=== PATIENT | female | born 1955 | race Caucasian/White ===

== ENCOUNTER 2018-04-14 12:22 | Observation (INO) ==
[2018-04-14] MEDS ORDERED: Adenosine Inj 6 MG/2 ML Syringe IV.PUSH ONE (12:30)
[2018-04-14] MEDS: Metoprolol Inj 5 MG/5 ML Vial IV.PUSH PRN ×2 (12:44→12:54)
[2018-04-14] MEDS ORDERED: dilTIAZem 60 MG Tablet PO ONE (13:02)
[2018-04-14 13:03] LABS: Baso # (Auto) 0.1 th/mm3 (0.0-0.2); Baso % (Auto) 1.6 % (0.0-2.0); Eos % (Auto) 0.6 % (0.0-4.0); Hematocrit 46.9 % (35.0-46.0); Hemoglobin 15.6 gm/dL (11.6-15.3); Lymph # (Auto) 1.2 th/mm3 (1.0-4.8); Lymph % (Auto) 16.8 % (9.0-44.0); Mean Corpuscular HGB Conc 33.3 % (32.0-36.0); Mean Corpuscular Hemoglobin 31.1 pg (27.0-34.0); Mean Corpuscular Volume 93.2 fL (80.0-100.0); Mean Platelet Volume 8.1 fL (7.0-11.0); Mono # (Auto) 0.4 th/mm3 (0.0-0.9); Mono % (Auto) 4.8 % (0.0-8.0); Neut # (Auto) 5.7 th/mm3 (1.8-7.7); Neut % (Auto) 76.2 % (16.0-70.0); Platelet Count 199 th/mm3 (150-450); Red Blood Count 5.03 mil/mm3 (4.00-5.30); Red Cell Distribution Width 11.8 % (11.6-17.2); White Blood Count 7.4 th/mm3 (4.0-11.0)
[2018-04-14 13:09] LABS: Chloride 105 meq/L (98-107); Potassium 3.6 meq/L (3.5-5.1); Sodium 139 meq/L (136-145)
[2018-04-14 13:14] LABS: Anion Gap 12 meq/L (5-15); Calcium 9.4 mg/dL (8.5-10.1); Carbon Dioxide 21.7 meq/L (21.0-32.0); Glucose,Random 137 mg/dL (74-106); Lipase 76 U/L (73-393)
[2018-04-14 13:15] LABS: Blood Urea Nitrogen 16 mg/dL (7-18)
[2018-04-14 13:17] LABS: Alanine Aminotransferase 29 U/L (10-53); Aspartate Aminotransferase 23 U/L (15-37); Glomerular Filtration Rate 35 mL/min (>89)
[2018-04-14 13:19] LABS: Total Protein 7.4 g/dL (6.4-8.2)
[2018-04-14 13:20] LABS: Alkaline Phosphatase 41 U/L (45-117)
[2018-04-14 13:22] LABS: Troponin I 0.03 ng/mL (0.02-0.05)
--- NOTE | 2018-04-14 13:35 | ED ---
HPI General Chief Complaint: Abdominal Pain Stated Complaint: Abnormal Obstruction x1week Time Seen by Provider: 04/14/18 12:37 Source: patient Mode of arrival: ambulatory Limitations: no limitations History of Present Illness HPI narrative: This patient was sent to us by Dr. Coronado for tachycardia. The patient presented to his office this morning for the evaluation of abdominal bloating and constipation. She reports that she started using an herbal supplement called FORSKAHLIN a few weeks ago. She states that it was working so well that she upped her dose. She states that she "took a handful" 1 week ago and that her symptoms of intermittent tachycardia as well as subjective constipation started at that time. She states that she has not taken anymore since then. So, her last dose was 1 week ago. She reports intermittent tachycardia for the last week but states that her heart rate would always slow down with rest until this morning. When she saw Dr. Coronado this morning, she was found to have a rapid heart rate which did not spontaneously resolve. She was subsequently sent to us for further management. MD complaint: rapid heart beat Onset (ago): hour(s) (1) Duration: constant Context: other (She feels that it is related to constipation) Arrhythmia history: atrial fibrillation Associated symptoms: nausea and other (Lightheadedness) Related Data Home Medications Medication Instructions Recorded Confirmed No Known Home Medications 04/14/18 04/14/18 Allergies Allergy/AdvReac Type Severity Reaction Status Date / Time iodine Allergy Intermediate unknown Verified 04/14/18 12:38 Sulfa (Sulfonamide Allergy Intermediate unknown Verified 04/14/18 12:38 Antibiotics) Review of Systems Except as stated in HPI: all other systems reviewed are negative Constitutional Reports poor appetite Cardiovascular Denies chest pain, Denies diaphoresis, Denies syncope and Reports rapid heart rate Gastrointestinal Reports constipation [facility] Medical History Medical History Atrial fibrillation with RVR (Acute) Surgical History Surgical History S/P ablation of atrial fibrillation (Acute) Social History Social History Substance History: No History of Abuse Second Hand Smoke Exposure: No Smoking Status: Former smoker How Often Do You Have a Drink Containing Alcohol: Never Recent Travel in [facility] within the Last 8 Weeks: No Recent Out of Country Travel within the Last 8 Weeks: No Immunization History Tetanus Immunization: <5 Years Tetanus Immunization Year if Known: 2016 Hx Influenza Vaccine This Season: Yes Exam Const General: cooperative, healthy appearing, comfortable, no acute distress and well developed HENMT Head: normal to inspection, normocephalic and atraumatic Eyes General: appearance normal, both eyes and all related structures Conjunctivae: conjunctivae normal Sclera: sclerae normal Pupils: PERRL EOM: EOM intact bilaterally Neck Neck: normal visual inspection and full ROM Chest Chest: normal inspection of the chest Resp Effort & Inspection: normal respiratory effort and able to speak in complete sentences Auscultation: clear to auscultation bilaterally Cardio Rate: tachycardic Rhythm: regular rhythm GI Inspection: normal to inspection Palpation: soft Auscultation: normal bowel sounds Back/Spine/Pelvis Cervical Spine: cervical ROM normal Thoracic/Lumbar Spine: thoraco-lumbar ROM normal Skin General: no rashes or lesions noted and turgor normal Neuro General: alert, awake, oriented x3, moves all extremities and CN's II-XI intact bilaterally Extrem General: normal to inspection and full ROM Psych Appearance: grossly normal Mental Status: mental status grossly normal Speech and Movement: speech and movement normal Mood: congruent mood Affect: normal affect Attitude: cooperative Thought Process: normal Thought Content: normal Judgment: judgment good Course Reevaluation(s) Reevaluation #1: The patient has actually been reassessed several times. Her rate initially slowed with Adenocard to where we could see that she was in atrial fibrillation. She was then treated with metoprolol IV 3. She was also given Cardizem 60 mg p.o. Her rate has been controlled with this treatment. She has remained in atrial fibrillation. Initial Documented Vital Signs Temperature 98.2 F 04/14/18 12:30 Pulse Rate 248 H 04/14/18 12:30 Respiratory Rate 22 04/14/18 12:30 Blood Pressure 142/86 H 04/14/18 12:30 Pulse Oximetry 99 04/14/18 12:30 Last Documented Vital Signs Temperature 98.2 F 04/14/18 12:30 Pulse Rate 125 H 04/14/18 14:35 Respiratory Rate 16 04/14/18 12:52 Blood Pressure 109/79 04/14/18 14:35 Pulse Oximetry 98 04/14/18 14:35 Critical Care Time Critical Care Time: Yes Total Critical Care Time: 45 Attestation: Time to perform other separately billable procedures was not included in the critical care time. My time did not include minutes spent treating any other patients simultaneously or on activities that did not directly contribute to the patient's treatment. The services I provided to this patient were to treat and/or prevent clinically significant deterioration due to AF with RVR I provided critical care services requiring my management, as noted below: Chart data review, documentation time, medication orders and management, vital sign assessments/reviewing monitor data, ordering and reviewing lab tests, ordering and interpreting/reviewing x-rays and diagnostic studies, care of the patient and discussion of the patient with the admitting physicians Medical Decision Making MDM Narrative Medical decision making narrative: This patient presents with the main problem of tachycardia but with the chief complaint of constipation and abdominal bloating. She was being evaluated by Dr. Coronado this morning for the constipation and was found to be tachycardic. She was sent to us for further evaluation and treatment. She has recently started taking an herbal supplement. She developed intermittent episodes of tachycardia after starting the herbal supplement. She states that today is the first day that the tachycardia did not spontaneously resolve after a few minutes. She further reports that she developed the constipation and abdominal bloating after starting the herbal supplement. The patient is agreeable to admission for further evaluation and treatment of her new onset atrial fibrillation/flutter. Differential Diagnosis Differential Diagnosis: Differential diagnosis of tachycardia includes but is not limited to PSVT, atrial fibrillation with a rapid ventricular response, sinus tachycardia (due to hypovolemia, anemia, thyrotoxicosis, PE) Differential diagnosis of abdominal pain includes but is not limited to gastritis, pancreatitis, hepatitis, gastroenteritis, constipation, urinary retention, peptic ulcer disease, diverticulitis or appendicitis Lab Data Lab results reviewed: Yes I reviewed the patient's lab results. Result diagrams: 04/14/18 12:50 04/14/18 12:50 Lab Results 04/14/18 04/14/18 Range/Units 12:50 12:50 CBC w Diff Auto diff final WBC 7.4 (4.0-11.0) th/mm3 RBC 5.03 (4.00-5.30) mil/mm3 Hgb 15.6 H (11.6-15.3) gm/dL Hct 46.9 H (35.0-46.0) % MCV 93.2 (80.0-100.0) fL MCH 31.1 (27.0-34.0) pg MCHC 33.3 (32.0-36.0) % RDW 11.8 (11.6-17.2) % Plt Count 199 (150-450) th/mm3 MPV 8.1 (7.0-11.0) fL Neut % (Auto) 76.2 H (16.0-70.0) % Lymph % (Auto) 16.8 (9.0-44.0) % [place] % (Auto) 4.8 (0.0-8.0) % Eos % (Auto) 0.6 (0.0-4.0) % Baso % (Auto) 1.6 (0.0-2.0) % Neut # (Auto) 5.7 (1.8-7.7) th/mm3 Lymph # (Auto) 1.2 (1.0-4.8) th/mm3 [place] # (Auto) 0.4 (0.0-0.9) th/mm3 Eos # (Auto) 0.0 (0.0-0.4) th/mm3 Baso # (Auto) 0.1 (0.0-0.2) th/mm3 WBC Differential . Differential Comment . Sodium 139 (136-145) meq/L Potassium 3.6 (3.5-5.1) meq/L Chloride 105 (98-107) meq/L Carbon Dioxide 21.7 (21.0-32.0) meq/L Anion Gap 12 (5-15) meq/L BUN 16 (7-18) mg/dL Creatinine 1.50 H (0.50-1.00) mg/dL Estimated GFR 35 L (>89) mL/min Random Glucose 137 H (74-106) mg/dL Calcium 9.4 (8.5-10.1) mg/dL Total Bilirubin 0.7 (0.2-1.0) mg/dL AST 23 (15-37) U/L ALT 29 (10-53) U/L Alkaline Phosphatase 41 L (45-117) U/L Troponin I 0.03 (0.02-0.05) ng/mL Total Protein 7.4 (6.4-8.2) g/dL Albumin 4.0 (3.4-5.0) g/dL Lipase 76 (73-393) U/L Imaging Data Radiologist's impression: Abdomen/Pelvis CT 04/14/18 12:41 CONCLUSION: 1. Unremarkable bowel gas pattern on this noncontrast examination performed without oral contrast. 2. The gallbladder appears unremarkable. ECG Data EKG Prior to Arrival: No Attestation: I personally reviewed and interpreted this ECG as follows: ( Initial EKG shows a regular tachycardia to 50. She has some rate related ST segment depression inferiorly and laterally. Repeat EKG following medication shows atrial flutter with a rate of 127. The ST depression has improved.) Discharge Plan Discharge Disposition Patient Disposition: 30 Still Patient Discharge Details Diagnosis: Atrial fibrillation with rapid ventricular response, Constipation Physicians Team ED Provider: Vera Chapa Primary Care Provider: UNKNOWN, Rxs /Orders / Referrals /Forms Prescriptions: No Action No Known Home Medications RF: 0 Status ED Status: Pending Admission
--- NOTE | 2018-04-14 14:30 | CT ---
EXAM DATE: 04/14/2018 1:57 PM EDT AGE/SEX: 62 years / Female INDICATIONS: Lower abdominal pain. CLINICAL DATA: This is the patient's initial encounter. Patient reports that signs and symptoms have been present for 1 week and indicates a pain score of 4/10. MEDICAL/SURGICAL HISTORY: . Atrial fibrillation. . Cardiac ablation. RADIATION DOSE: 17.09 CTDI (mGy) COMPARISON: No prior exams available for comparison. TECHNIQUE: Multiple contiguous axial images were obtained through the abdomen. Images were obtained using multiple row detector helical technique. Using automated exposure control and adjustment of the mA and/or kV according to patient size, radiation dose was kept as low as reasonably achievable to o btain optimal diagnostic quality images. DICOM format image data is available electronically for rev iew and comparison. FINDINGS: Lower Lungs: The visualized lower lungs are clear. Liver: The liver has a homogeneous density without space-occupying lesion. There is no dilation of th e biliary tree. The gallbladder is unremarkable in appearance. Spleen: Homogeneous density without enlargement. Pancreas: Unremarkable without mass or calcification. Kidneys: Normal in size and shape. No evidence of mass or hydronephrosis. Adrenal Glands: Unremarkable. Aorta: The aorta and proximal iliac vessels are grossly unremarkable without aneurysmal dilation. T he appendix is not well visualized. Bowel/Mesentery: No oral contrast was given limiting the sensitivity of the exam. The bowel loops are grossly unremarkable. The cecum and sigmoid colon have a normal configuration. Abdominal Wall: Intact. Retroperitoneum: No evidence of adenopathy in the retrocrural, para-aortic, or deep pelvic regions. Bladder: Contours are smooth. Reproductive Organs: No abnormal masses or calcifications seen. Inguinal: The inguinal region is unremarkable without evidence of adenopathy. Bony Structures: Unremarkable. CONCLUSION: 1. Unremarkable bowel gas pattern on this noncontrast examination performed without oral contrast. 2. The gallbladder appears unremarkable. Electronically signed by: Rinku Pedersen MD 04/14/2018 2:28 PM EDT
[2018-04-14] MEDS ORDERED: Acetaminophen 325 MG Tablet PO PRN (16:09)
[2018-04-14] MEDS ORDERED: Sod Chloride 0.9% Inj 1,000 ML IV.CONT SCH (16:15)
--- NOTE | 2018-04-14 17:26 | P.HP ---
History of Present Illness Service: medicine Primary Care Physician: UNKNOWN History of Present Illness: Patient sent to the ER from her gastroenterologists office after being found to be extremely tachycardic. According to patient has had a hx of atrial fibrillation requiring ablation x4 , the last one was [address] Reed. She has done well since and has been trying to loose weight in order to improve her cholesterol. Last week she was taking a herbal weight loss pill (Forskohlii ) she states she was having stomach issues with bloating and constipation as well. She took extra doses of the supplement hoping to help her GI problems. She states she noted she started getting palppitations at this time.Apparently she stopped taking the pills last week. The palpitations recurred but would resolve spontaneously. She denies cp or sob , she does state she would get light headed. Apparently in the past before her ablations she would pass out so she did not think much regarding the lightheadedness. Meanwhile because of her constipation and discomfort she made an appt with GI to be seen today. Thinking they may do a procedure on her she did not eat since Friday. She drinks water and denies the use of caffeinated beverages or alcohol. When she was sent to the ER her heart rate was in the 250's and she required adenocard, lopressor and oral cardizem to slow her down. She states in the past she had the ablations as she was refractory to the medications. She has been in good health until now and her main concern in the ED is her bowels. - Diagnosis (1) Atrial fibrillation with rapid ventricular response (2) Constipation Review of Systems All other systems reviewed negative except as stated in HPI [facility] - History History Provided By: Patient - Medical History Medical History: Medical History (Last Updated 04/14/18 @ 16:58 by Kiara Albrecht MD) Atrial fibrillation with RVR Hyperlipidemia - Surgical History Surgical History: Surgical History (Last Updated 04/14/18 @ 16:58 by Kiara Albrecht MD) S/P ablation of atrial fibrillation - Family History Family History: Family History (Last Updated 04/14/18 @ 16:58 by Kiara Albrecht MD) Mother Family history of colon cancer Sister Atrial fibrillation Father Atrial fibrillation - Tobacco History Second Hand Smoke Exposure: No Tobacco Use In Past 30 Days: No Smoking Status: Former smoker - Alcohol History How Often Do You Have a Drink Containing Alcohol: Never - Substance Use History Substance History: No History of Abuse - Travel History Recent Travel in the [place] Within the Last 8 Weeks: No Recent Travel Out of the Country Within the Last 8 Weeks: No - Immunization History Tetanus Immunization: <5 Years Tetanus Immunization Year if Known: 2016 Hx Influenza Vaccine This Season: Yes Medications and Allergies Active Medications: Active Medications Acetaminophen (Tylenol) 650 mg PO Q4H PRN PRN Reason: Temp > 100.4 Sodium Chloride (Ns Inj) 1,000 mls @ 60 mls/hr IV.CONT .[id number] TASHI Metoprolol Tartrate (Lopressor Inj) 5 mg IV.PUSH Q5M PRN PRN Reason: RAPID HEART RATE Last Admin: 04/14/18 12:54 Dose: 5 mg Senna/Docusate Sodium (Carolee-Colace) 1 tab PO BID PRN PRN Reason: CONSTIPATION Sodium Chloride (Ns Flush) 2 ml IV.FLUSH PRN PRN PRN Reason: FLUSH AFTER USING IV ACCESS Temazepam (Restoril) 15 mg PO HS PRN PRN Reason: INSOMNIA Allergies Allergy/AdvReac Type Severity Reaction Status Date / Time iodine Allergy Intermediate unknown Verified 04/14/18 12:38 Sulfa (Sulfonamide Allergy Intermediate unknown Verified 04/14/18 12:38 Antibiotics) Exam Vital signs: Vital Signs 04/14/18 12:30 04/14/18 12:41 04/14/18 12:52 Temperature 98.2 F Pulse Rate 248 H 248 H 124 H Respiratory Rate 22 18 16 Blood Pressure 142/86 H 119/84 Pulse Oximetry 99 100 99 04/14/18 13:21 04/14/18 14:35 04/14/18 15:09 Temperature Pulse Rate 98 H 125 H 80 Respiratory Rate Blood Pressure 113/77 109/79 108/77 Pulse Oximetry 97 98 98 Intake & Output 04/13/18 04/14/18 04/14/18 18:59 06:59 18:59 Weight 179 kg - Constitutional no acute distress - Routine HEENT Exam Head: Present: normocephalic Eye: Present: EOMI ENT: Present: mucous membranes moist - Routine Neck Exam Present: supple - Routine Respiratory Exam Present: CTA bilaterally - Routine Cardiovascular Exam Present: tachycardia - Routine Abdominal Exam Present: soft, normoactive bowel sounds - Routine Extremities Exam Present: full ROM - Routine Skin Exam Present: intact - Routine Neurological Exam Present: alert, oriented X3 Results - Labs CBC & Chem 7: 04/14/18 12:50 04/15/18 05:10 Labs: Laboratory Results - last 24 hr 04/14/18 04/14/18 12:50 12:50 CBC w Diff Auto diff final WBC 7.4 RBC 5.03 Hgb 15.6 H Hct 46.9 H MCV 93.2 MCH 31.1 MCHC 33.3 RDW 11.8 Plt Count 199 MPV 8.1 Neut % (Auto) 76.2 H Lymph % (Auto) 16.8 [place] % (Auto) 4.8 Eos % (Auto) 0.6 Baso % (Auto) 1.6 Neut # (Auto) 5.7 Lymph # (Auto) 1.2 [place] # (Auto) 0.4 Eos # (Auto) 0.0 Baso # (Auto) 0.1 WBC Differential . Differential Comment . Sodium 139 Potassium 3.6 Chloride 105 Carbon Dioxide 21.7 Anion Gap 12 BUN 16 Creatinine 1.50 H Estimated GFR 35 L Random Glucose 137 H Calcium 9.4 Total Bilirubin 0.7 AST 23 ALT 29 Alkaline Phosphatase 41 L Troponin I 0.03 Total Protein 7.4 Albumin 4.0 Lipase 76 - Imaging Impressions Abdomen/Pelvis CT 04/14/18 12:41 CONCLUSION: 1. Unremarkable bowel gas pattern on this noncontrast examination performed without oral contrast. 2. The gallbladder appears unremarkable. Caprini VTE Risk Assessment Caprini VTE Risk Assessment: Moderate/High Risk (score >= 2) Caprini Risk Assessment Model: Point Value = 1 Point Value = 2 Point Value = 3 Point Value = 5 Age 41-60 Minor surgery BMI > 25 kg/m2 Swollen legs Varicose veins or History of unexplained or recurrent spontaneous Oral contraceptives or hormone replacement Sepsis (< 1 month) Serious lung disease, including pneumonia (< 1 month) Abnormal pulmonary function Acute myocardial infarction Congestive heart failure (< 1 month) History of inflammatory bowel disease Medical patient at bed rest Age 61-74 Arthroscopic surgery Major open surgery (> 45 min) Laparoscopic surgery (> 45 min) Malignancy Confined to bed (> 72 hours) Immobilizing plaster cast Central venous access Age >= 75 History of VTE Family history of VTE Factor V Leiden Prothrombin [id number] Lupus anticoagulant Anticardiolipin antibodies Elevated serum homocysteine Heparin-induced thrombocytopenia Other congenital or acquired thrombophilia Stroke (< 1 month) Elective arthroplasty Hip, pelvis, or leg fracture Acute spinal cord injury (< 1 month) Prophylaxis Regimen: Total Risk Factor Score Risk Level Prophylaxis Regimen 0-1 Low Early ambulation 2 Moderate Order ONE of the following: *Sequential Compression Device (SCD) *Heparin 5000 units SQ BID 3-4 Higher Order ONE of the following medications: *Heparin 5000 units SQ TID *Enoxaparin/Lovenox 40 mg SQ daily (WT < 150 kg, CrCl > 30 mL/min) *Enoxaparin/Lovenox 30 mg SQ daily (WT < 150 kg, CrCl > 10-29 mL/min) *Enoxaparin/Lovenox 30 mg SQ BID (WT < 150 kg, CrCl > 30 mL/min) AND/OR *Sequential Compression Device (SCD) 5 or more Highest Order ONE of the following medications: *Heparin 5000 units SQ TID (Preferred with Epidurals) *Enoxaparin/Lovenox 40 mg SQ daily (WT < 150 kg, CrCl > 30 mL/min) *Enoxaparin/Lovenox 30 mg SQ daily (WT < 150 kg, CrCl > 10-29 mL/min) *Enoxaparin/Lovenox 30 mg SQ BID (WT < 150 kg, CrCl > 30 mL/min) AND *Sequential Compression Device (SCD) Assessment and Plan - Assessment (1) Atrial fibrillation with rapid ventricular response Code(s): I48.91 - Unspecified atrial fibrillation Status: Suspected Onset Date: ~04/14/18 Plan: patient had her heart rate slowed in the ER by use of adenocard,lopressor and cardizem, will admit her and place her on telemetry and monitor over night . Will ask cardiology to see her . The use of the herbal supplement may be just coincidental Check tsh (2) Constipation Code(s): K59.00 - Constipation, unspecified Status: Acute Plan: her ct scan w/o contrast in the ER was benign, I think we will have to get cardiac status stabilized before GI does any procedures. - Plan Discussed Condition With: Patient,sister and friend (2) Constipation Qualifiers: Constipation type: unspecified constipation type Qualified Code(s): K59.00 - Constipation, unspecified
--- NOTE | 2018-04-14 18:04 | ECG ---
Date Performed: 04/14/2018 Time Performed: 14:28:49 PTAGE: 62 years EKG: ATRIAL FLUTTER/TACHYCARDIA WITH RAPID VENTRICULAR RESPONSE ABNORMAL RHYTHM ECG PREVIOUS TRACING : 04/14/2018 13.17 Since the previous tracing, no significant change noted DOCTOR: Aminah Lr Interpretating Date/Time 04/14/2018 18:03:05
--- NOTE | 2018-04-14 18:05 | ECG ---
Date Performed: 04/14/2018 Time Performed: 13:17:03 PTAGE: 62 years EKG: ATRIAL FLUTTER/TACHYCARDIA WITH RAPID VENTRICULAR RESPONSE MODERATE INTRAVENTRICULAR CONDUC TION DELAY NONSPECIFIC T-WAVE ABNORMALITY ABNORMAL RHYTHM ECG PREVIOUS TRACING : 04/14/2018 12.36 Since the previous tracing, no significant change noted DOCTOR: Aminah Lr Interpretating Date/Time 04/14/2018 18:04:53
--- NOTE | 2018-04-14 18:07 | ECG ---
Date Performed: 04/14/2018 Time Performed: 12:36:09 PTAGE: 62 years EKG: ATRIAL FLUTTER/TACHYCARDIA WITH RAPID VENTRICULAR RESPONSE ST DEPRESSION ABNORMAL ECG PREVIOUS TRACING : 04/14/2018 12.31 Compared to previous tracing, rate slower DOCTOR: Aminah Lr Interpretating Date/Time 04/14/2018 18:06:24
--- NOTE | 2018-04-14 18:08 | ECG ---
Date Performed: 04/14/2018 Time Performed: 12:31:36 PTAGE: 62 years EKG: NARROW COMPLEX TACHYCARDIA INTRAVENTRICULAR CONDUCTION DELAY MARKED ST DEPRESSION ABNORMAL ECG NO PREVIOUS TRACING DOCTOR: Aminah Lr Interpretating Date/Time 04/14/2018 18:06:58
[2018-04-14] MEDS: Sod Chloride 0.9% Inj 1,000 ML IV.CONT SCH (20:18)
[2018-04-14] MEDS: Metoprolol Tartrate 50 MG Tablet PO SCH (20:20)
[2018-04-14] MEDS ORDERED: Senna/Docusate Sodium 8.6/50 MG Tablet PO PRN (21:00)
[2018-04-14] MEDS ORDERED: Temazepam 15 MG Capsule PO PRN (21:00)
[2018-04-14] MEDS ORDERED: Enoxaparin Inj 80 MG/0.8 ML Syringe SQ SCH (21:00)
[2018-04-15 06:21] LABS: Chloride 110 meq/L (98-107); Sodium 142 meq/L (136-145)
[2018-04-15] MEDS: Sod Chloride 0.9% Inj 1,000 ML IV.CONT SCH ×2 (06:33→08:37)
[2018-04-15 06:35] LABS: Alanine Aminotransferase 24 U/L (10-53); Albumin 3.5 g/dL (3.4-5.0); Alkaline Phosphatase 37 U/L (45-117); Anion Gap 5 meq/L (5-15); Aspartate Aminotransferase 20 U/L (15-37); Blood Urea Nitrogen 17 mg/dL (7-18); Calcium 8.3 mg/dL (8.5-10.1); Carbon Dioxide 26.9 meq/L (21.0-32.0); Glomerular Filtration Rate 56 mL/min (>89); Glucose,Random 86 mg/dL (74-106); Total Protein 6.5 g/dL (6.4-8.2)
--- NOTE | 2018-04-15 08:04 | P.CONCA ---
<Aguilar Eagle - Last Filed: 04/15/18 07:58> History of Present Illness Primary Care Provider: UNKNOWN Family Provider: UNKNOWN History of Present Illness: 62-year-old female with a past medical history of atrial fibrillation status post ablation. The patient has a history of atrial flutter with ablation 4, last ablation [address] Lewis. The patient has been having episodes of lightheadedness and passing out for the past week. 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 She was found to have high heart rate and sent to the ED for evaluation. The patient was found to have narrow complex tachycardia with rate to 50 upon presentation. 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 Metoprolol 50 mg was started last night, heart rate remains 120s today. The patient is feeling much better today with no further lightheadedness. She has not had any recent or current chest pain, shortness breath, palpitations. Review of Systems All other systems reviewed negative except as stated in HPI PMFSH - History History Provided By: Patient - Medical History Medical History: Medical History (Last Updated 04/14/18 @ 16:58 by Kiara Albrecht MD) Hyperlipidemia Atrial fibrillation with RVR - Surgical History Surgical History: Surgical History (Last Updated 04/14/18 @ 16:58 by Kiara Albrecht MD) S/P ablation of atrial fibrillation - Family History Family History: Family History (Last Updated 04/14/18 @ 16:58 by Kiara Albrecht MD) Mother Family history of colon cancer Sister Atrial fibrillation Father Atrial fibrillation - Tobacco History Second Hand Smoke Exposure: No Tobacco Use In Past 30 Days: No Smoking Status: Former smoker - Alcohol History How Often Do You Have a Drink Containing Alcohol: Never - Substance Use History Substance History: No History of Abuse - Travel History Recent Travel in the [place] Within the Last 8 Weeks: No Recent Travel Out of the Country Within the Last 8 Weeks: No - Immunization History Tetanus Immunization: <5 Years Tetanus Immunization Year if Known: 2016 Hx Influenza Vaccine This Season: No Medications and Allergies Allergies Allergy/AdvReac Type Severity Reaction Status Date / Time iodine Allergy Intermediate unknown Verified 04/14/18 12:38 Sulfa (Sulfonamide Allergy Intermediate unknown Verified 04/14/18 12:38 Antibiotics) Active Medications: Active Medications Acetaminophen (Tylenol) 650 mg PO Q4H PRN PRN Reason: Temp > 100.4 Apixaban (Eliquis) 5 mg PO BID [facility] Last Admin: 04/14/18 20:20 Dose: 5 mg Sodium Chloride (Ns Inj) 1,000 mls @ 100 mls/hr IV.CONT .Q10H [facility] Last Admin: 04/15/18 06:33 Dose: Not Given Metoprolol Tartrate (Lopressor Inj) 5 mg IV.PUSH Q5M PRN PRN Reason: RAPID HEART RATE Last Admin: 04/14/18 12:54 Dose: 5 mg Metoprolol Tartrate (Lopressor) 50 mg PO BID [facility] Last Admin: 04/14/18 20:20 Dose: 50 mg Senna/Docusate Sodium (Carolee-Colace) 1 tab PO BID PRN PRN Reason: CONSTIPATION Sodium Chloride (Ns Flush) 2 ml IV.FLUSH PRN PRN PRN Reason: FLUSH AFTER USING IV ACCESS Temazepam (Restoril) 15 mg PO HS PRN PRN Reason: INSOMNIA Last Admin: 04/14/18 21:27 Dose: 15 mg Exam Vital signs: Vital Signs 04/14/18 12:30 04/14/18 12:41 04/14/18 12:52 Temperature 98.2 F Pulse Rate 248 H 248 H 124 H Respiratory Rate 22 18 16 Blood Pressure 142/86 H 119/84 Pulse Oximetry 99 100 99 04/14/18 13:21 04/14/18 14:35 04/14/18 15:09 Temperature Pulse Rate 98 H 125 H 80 Respiratory Rate Blood Pressure 113/77 109/79 108/77 Pulse Oximetry 97 98 98 04/14/18 17:51 04/14/18 20:00 04/15/18 00:00 Temperature 98.0 F 96.2 F L Pulse Rate 105 H 85 Respiratory Rate 16 16 Blood Pressure 114/88 107/68 Pulse Oximetry 98 99 96 04/15/18 04:00 Temperature 98.5 F Pulse Rate 76 Respiratory Rate 16 Blood Pressure 111/59 L Pulse Oximetry 98 Intake & Output 04/14/18 04/15/18 04/15/18 18:59 06:59 18:59 Intake Total 1000 / 1000 Balance 1000 / 1000 Weight 394 lb 10.039 oz 198 lb 10.184 oz Intake: IV 1000 / 1000 NS Inj 1,000 ML @ 100 mls/hr IV 1000 / 1000 .CONT .Q10H [facility] Rx#:[id number] Other: # Voids 2 Weight On Admission 198 lb 10.184 oz Narrative: GENERAL: Well-developed well-nourished. In no acute distress. NECK: No carotid bruits. No JVD. CARDIOVASCULAR: Tachycardic rate and regular rhythm. No murmur appreciated. RESPIRATORY: No accessory muscle use. Clear to auscultation. Breath sounds equal bilaterally. MUSCULOSKELETAL: No clubbing or cyanosis. No edema. NEUROLOGICAL: Awake and alert. Normal speech. Results 04/14/18 12:50 04/15/18 05:10 Cardiac Enzymes 04/14/18 04/15/18 Range/Units 12:50 05:10 AST 23 20 (15-37) U/L Troponin I 0.03 (0.02-0.05) ng/mL CBC 04/14/18 Range/Units 12:50 WBC 7.4 (4.0-11.0) th/mm3 RBC 5.03 (4.00-5.30) mil/mm3 Hgb 15.6 H (11.6-15.3) gm/dL Hct 46.9 H (35.0-46.0) % Plt Count 199 (150-450) th/mm3 Neut # (Auto) 5.7 (1.8-7.7) th/mm3 Lymph # (Auto) 1.2 (1.0-4.8) th/mm3 [place] # (Auto) 0.4 (0.0-0.9) th/mm3 Eos # (Auto) 0.0 (0.0-0.4) th/mm3 Baso # (Auto) 0.1 (0.0-0.2) th/mm3 Comprehensive Metabolic Panel 04/14/18 04/15/18 Range/Units 12:50 05:10 Sodium 139 142 (136-145) meq/L Potassium 3.6 4.0 (3.5-5.1) meq/L Chloride 105 110 H (98-107) meq/L Carbon Dioxide 21.7 26.9 (21.0-32.0) meq/L BUN 16 17 (7-18) mg/dL Creatinine 1.50 H 1.00 (0.50-1.00) mg/dL Calcium 9.4 8.3 L D (8.5-10.1) mg/dL AST 23 20 (15-37) U/L ALT 29 24 (10-53) U/L Alkaline Phosphatase 41 L 37 L (45-117) U/L Total Protein 7.4 6.5 D (6.4-8.2) g/dL Albumin 4.0 3.5 (3.4-5.0) g/dL Intake and Output 04/14/18 04/15/18 04/15/18 22:59 06:59 14:59 Intake Total 1000 / 1000 Balance 1000 / 1000 Intake: IV 1000 / 1000 NS Inj 1,000 ML @ 100 mls/hr IV 1000 / 1000 .CONT .Q10H [facility] Rx#:[id number] Other: # Voids 2 Weight 198 lb 10.184 oz Weight On Admission 198 lb 10.184 oz Assessment and Plan - Plan 62-year-old female with a past medical history of atrial fibrillation status post ablation. The patient has a history of atrial flutter with ablation 4, last ablation [address] Lewis. The patient has been having episodes of lightheadedness and passing out for the past week. 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 She was found to have high heart rate and sent to the ED for evaluation. The patient was found to have narrow complex tachycardia with rate to 50 upon presentation. 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 Lewis to coordinate. Possible plan to discharge on beta-ella for outpatient EP study/ablation versus transfer for ablation at [facility]. Continue beta-ella. N.p.o. with IVF. Discussed Condition With: Patient, Dr. Cardona <Billy Cardona - Last Filed: 04/15/18 13:01> History of Present Illness Primary Care Provider: UNKNOWN Family Provider: UNKNOWN [facility] - Medical History Medical History: Medical History (Last Updated 04/14/18 @ 16:58 by Kiara Albrecht MD) Hyperlipidemia Atrial fibrillation with RVR - Surgical History Surgical History: Surgical History (Last Updated 04/14/18 @ 16:58 by Kiara Albrecht MD) S/P ablation of atrial fibrillation - Family History Family History: Family History (Last Updated 04/14/18 @ 16:58 by Kiara Albrecht MD) Mother Family history of colon cancer Sister Atrial fibrillation Father Atrial fibrillation Exam Vital signs: Vital Signs 04/14/18 12:30 04/14/18 12:41 04/14/18 12:52 Temperature 98.2 F Pulse Rate 248 H 248 H 124 H Respiratory Rate 22 18 16 Blood Pressure 142/86 H 119/84 Pulse Oximetry 99 100 99 04/14/18 13:21 04/14/18 14:35 04/14/18 15:09 Temperature Pulse Rate 98 H 125 H 80 Respiratory Rate Blood Pressure 113/77 109/79 108/77 Pulse Oximetry 97 98 98 04/14/18 17:51 04/14/18 20:00 04/15/18 00:00 Temperature 98.0 F 96.2 F L Pulse Rate 105 H 85 Respiratory Rate 16 16 Blood Pressure 114/88 107/68 Pulse Oximetry 98 99 96 04/15/18 04:00 04/15/18 08:00 Temperature 98.5 F 97.2 F L Pulse Rate 76 124 H Respiratory Rate 16 20 Blood Pressure 111/59 L 121/78 Pulse Oximetry 98 98 Intake & Output 04/14/18 04/15/18 04/15/18 18:59 06:59 18:59 Intake Total 1000 / 1000 Balance 1000 / 1000 Weight 179 kg 90.1 kg Intake: IV 1000 / 1000 NS Inj 1,000 ML @ 100 mls/hr IV 1000 / 1000 .CONT .Q10H [facility] Rx#:[id number] Other: # Voids 2 Weight On Admission 90.1 kg Results 04/14/18 12:50 04/15/18 05:10 Cardiac Enzymes 04/14/18 04/15/18 Range/Units 12:50 05:10 AST 23 20 (15-37) U/L Troponin I 0.03 (0.02-0.05) ng/mL CBC 04/14/18 Range/Units 12:50 WBC 7.4 (4.0-11.0) th/mm3 RBC 5.03 (4.00-5.30) mil/mm3 Hgb 15.6 H (11.6-15.3) gm/dL Hct 46.9 H (35.0-46.0) % Plt Count 199 (150-450) th/mm3 Neut # (Auto) 5.7 (1.8-7.7) th/mm3 Lymph # (Auto) 1.2 (1.0-4.8) th/mm3 [place] # (Auto) 0.4 (0.0-0.9) th/mm3 Eos # (Auto) 0.0 (0.0-0.4) th/mm3 Baso # (Auto) 0.1 (0.0-0.2) th/mm3 Comprehensive Metabolic Panel 04/14/18 04/15/18 Range/Units 12:50 05:10 Sodium 139 142 (136-145) meq/L Potassium 3.6 4.0 (3.5-5.1) meq/L Chloride 105 110 H (98-107) meq/L Carbon Dioxide 21.7 26.9 (21.0-32.0) meq/L BUN 16 17 (7-18) mg/dL Creatinine 1.50 H 1.00 (0.50-1.00) mg/dL Calcium 9.4 8.3 L D (8.5-10.1) mg/dL AST 23 20 (15-37) U/L ALT 29 24 (10-53) U/L Alkaline Phosphatase 41 L 37 L (45-117) U/L Total Protein 7.4 6.5 D (6.4-8.2) g/dL Albumin 4.0 3.5 (3.4-5.0) g/dL Intake and Output 04/14/18 04/15/18 04/15/18 22:59 06:59 14:59 Intake Total 1000 / 1000 Balance 1000 / 1000 Intake: IV 1000 / 1000 NS Inj 1,000 ML @ 100 mls/hr IV 1000 / 1000 .CONT .Q10H [facility] Rx#:[id number] Other: # Voids 2 Weight 90.1 kg Weight On Admission 90.1 kg Assessment and Plan - Attending Attestation probable AVNRT BB started OK to DC discussed with Dr. Derek PHILIP in [facility] with dr lewis
[2018-04-15] MEDS: Metoprolol Tartrate 50 MG Tablet PO SCH (08:36)
[2018-04-15] MEDS ORDERED: Aspirin 325 MG Tablet PO SCH (10:00)
--- NOTE | 2018-04-15 11:21 | P.PN ---
Subjective Interval history: no complaints, exercising in the room this am, seen by PA for cardiology early am Physical Exam Vital signs: Vital Signs 04/14/18 12:30 04/14/18 12:41 04/14/18 12:52 Temperature 98.2 F Pulse Rate 248 H 248 H 124 H Respiratory Rate 22 18 16 Blood Pressure 142/86 H 119/84 Pulse Oximetry 99 100 99 04/14/18 13:21 04/14/18 14:35 04/14/18 15:09 Temperature Pulse Rate 98 H 125 H 80 Respiratory Rate Blood Pressure 113/77 109/79 108/77 Pulse Oximetry 97 98 98 04/14/18 17:51 04/14/18 20:00 04/15/18 00:00 Temperature 98.0 F 96.2 F L Pulse Rate 105 H 85 Respiratory Rate 16 16 Blood Pressure 114/88 107/68 Pulse Oximetry 98 99 96 04/15/18 04:00 04/15/18 08:00 Temperature 98.5 F 97.2 F L Pulse Rate 76 95 H Respiratory Rate 16 20 Blood Pressure 111/59 L 121/78 Pulse Oximetry 98 98 Intake & Output 04/14/18 04/15/18 04/15/18 18:59 06:59 18:59 Intake Total 1000 / 1000 Balance 1000 / 1000 Weight 179 kg 90.1 kg Intake: IV 1000 / 1000 NS Inj 1,000 ML @ 100 mls/hr IV 1000 / 1000 .CONT .Q10H [facility] Rx#:[id number] Other: # Voids 2 Weight On Admission 90.1 kg - Constitutional no acute distress - Routine HEENT Exam Head: Present: normocephalic - Routine Respiratory Exam Present: CTA bilaterally - Routine Cardiovascular Exam Present: RRR - Routine Abdominal Exam Present: soft - Routine Extremities Exam Comments: no edema - Routine Skin Exam Present: intact Results - Labs CBC & Chem 7: 04/14/18 12:50 04/15/18 05:10 Laboratory Results - last 24 hr 04/14/18 04/14/18 04/14/18 12:50 12:50 12:50 CBC w Diff Auto diff final WBC 7.4 RBC 5.03 Hgb 15.6 H Hct 46.9 H MCV 93.2 MCH 31.1 MCHC 33.3 RDW 11.8 Plt Count 199 MPV 8.1 Neut % (Auto) 76.2 H Lymph % (Auto) 16.8 [place] % (Auto) 4.8 Eos % (Auto) 0.6 Baso % (Auto) 1.6 Neut # (Auto) 5.7 Lymph # (Auto) 1.2 [place] # (Auto) 0.4 Eos # (Auto) 0.0 Baso # (Auto) 0.1 WBC Differential . Differential Comment . Sodium 139 Potassium 3.6 Chloride 105 Carbon Dioxide 21.7 Anion Gap 12 BUN 16 Creatinine 1.50 H Estimated GFR 35 L Random Glucose 137 H Calcium 9.4 Total Bilirubin 0.7 AST 23 ALT 29 Alkaline Phosphatase 41 L Troponin I 0.03 Total Protein 7.4 Albumin 4.0 Lipase 76 TSH 1.800 04/15/18 05:10 CBC w Diff WBC RBC Hgb Hct MCV MCH MCHC RDW Plt Count MPV Neut % (Auto) Lymph % (Auto) [place] % (Auto) Eos % (Auto) Baso % (Auto) Neut # (Auto) Lymph # (Auto) [place] # (Auto) Eos # (Auto) Baso # (Auto) WBC Differential Differential Comment Sodium 142 Potassium 4.0 Chloride 110 H Carbon Dioxide 26.9 Anion Gap 5 BUN 17 Creatinine 1.00 Estimated GFR 56 L Random Glucose 86 Calcium 8.3 L D Total Bilirubin 0.5 AST 20 ALT 24 Alkaline Phosphatase 37 L Troponin I Total Protein 6.5 D Albumin 3.5 Lipase TSH - Imaging Impressions Abdomen/Pelvis CT 04/14/18 12:41 CONCLUSION: 1. Unremarkable bowel gas pattern on this noncontrast examination performed without oral contrast. 2. The gallbladder appears unremarkable. Assessment and Plan - Assessment (1) Atrial fibrillation with rapid ventricular response Code(s): I48.91 - Unspecified atrial fibrillation Status: Suspected Onset Date: ~04/14/18 Plan: Seen by cardiology felt to have AVNRT rather then atrial fibrillation, heart rate in low 100's over night sinus toleated beta ella. Discussed with Dr Cardona who has recommended that she be discharged on metoprolol 25 bid and full dose asprin. 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 (2) Constipation Code(s): K59.00 - Constipation, unspecified Status: Acute Plan: her ct scan w/o contrast in the ER was benign, I think we will have to get cardiac status stabilized before GI does any procedures. Discussed with her her expectation of what normal bowel movements should be. (3) AVNRT (AV jam re-entry tachycardia) Code(s): I47.1 - Supraventricular tachycardia Status: Acute Plan: Low dose beta ella , follow up with Dr Reed. She is fairly asymptomatic at high heart rates. Discussed with her that is she starts feeling light headed she should try to monitor her blood pressure and pulse and not let it go for long. - Plan Discussed Condition With: patient and sister Discharge Planning: discharge home today f/u with Dr Reed and PCP (2) Constipation Qualifiers: Constipation type: unspecified constipation type Qualified Code(s): K59.00 - Constipation, unspecified
[2018-04-15] MEDS ORDERED: Metoprolol Tartrate 25 MG Tablet PO SCH (21:00)
== END 2018-04-15 12:19 | disposition home or self-care (01) ==
LOC: PHED 12:22 → PH3 12:22 → PHEDA 12:22 → PH3 16:12
PROVIDERS: ADMIT Legal Medicine; ATTEND Legal Medicine